=== PATIENT | male | born 1955 | race Caucasian/White ===

== ENCOUNTER 2022-05-05 06:28 | Day surgery (SDC) | payer MEDICARE, SELFPAY ==
--- NOTE | 2022-05-04 10:49 | HO.ANESPROP2 ---
Documented by User: Lucinda Hunt NP 05/04/22 10:55 HPI - Anesthesia Eval Consult details Narrative: 66yo M for Colonoscopy Xarelto for afib - OK to hold per PCP [facility] Past Medical History Medical History Afib Diabetes HLD (hyperlipidemia) Surgical History Surgical History H/O cataract extraction Social History Social History Patient Tobacco Use Status: Never used Tobacco Use of substances other than those prescribed or required for medical reasons: No Are you DNR?: No Advance Directives: No Advance Directives Information Provided: Yes Meds Allergies Allergy/AdvReac Type Severity Reaction Status Date / Time No Known Allergies Allergy Unverified 03/11/20 16:50 [No Known Allergies*] Home Medications Medication Instructions Recorded Confirmed Last Taken Type coenzyme Q10 30 mg capsule (CoQ-10) 30 mg PO 05/04/22 Unknown History flaxseed oil 1,000 mg PO DAILY 05/04/22 05/04/22 Unknown History lisinopril 20 mg tablet 1 tab PO DAILY 05/04/22 05/04/22 05/05/22 History metformin 500 mg tablet mg PO 05/04/22 05/04/22 Unknown History metoprolol succinate 100 mg 1 tab PO DAILY 05/04/22 05/04/22 05/05/22 History tablet,extended release 24 hr rivaroxaban 20 mg tablet (Xarelto) 1 tab PO DAILY 05/04/22 05/04/22 Unknown History simvastatin 20 mg tablet 1 tab PO QPM 05/04/22 05/04/22 Unknown History Exam Exam Date and Time: May 04, 2022 1049 Assessment and Plan Assessment Anesthesia Assessment: Chart Reviewed Documented by User: Lex Brooks MD 05/05/22 07:49 [facility] Past Medical History Medical History Afib Diabetes HLD (hyperlipidemia) Family History Family history of problems with anesthesia: No Surgical History Surgical History H/O cataract extraction History of Problems with Anesthesia: No Social History Social History Patient Tobacco Use Status: Never used Tobacco Use of substances other than those prescribed or required for medical reasons: No Are you DNR?: No Advance Directives: No Advance Directives Information Provided: Yes Meds Allergies Allergy/AdvReac Type Severity Reaction Status Date / Time No Known Allergies Allergy Unverified 03/11/20 16:50 [No Known Allergies*] Home Medications Medication Instructions Recorded Confirmed Last Taken Type coenzyme Q10 30 mg capsule (CoQ-10) 30 mg PO 05/04/22 Unknown History flaxseed oil 1,000 mg PO DAILY 05/04/22 05/04/22 Unknown History lisinopril 20 mg tablet 1 tab PO DAILY 05/04/22 05/04/22 05/05/22 History metformin 500 mg tablet mg PO 05/04/22 05/04/22 Unknown History metoprolol succinate 100 mg 1 tab PO DAILY 05/04/22 05/04/22 05/05/22 History tablet,extended release 24 hr rivaroxaban 20 mg tablet (Xarelto) 1 tab PO DAILY 05/04/22 05/04/22 Unknown History simvastatin 20 mg tablet 1 tab PO QPM 05/04/22 05/04/22 Unknown History Exam Airway Mallampati Class: II TM Dist: >3cm Neck ROM: Full Loose/Missing/Broken Teeth: No Heart: rrr+[id number] in sinus right now Lungs: cta b/l Assessment and Plan Assessment Anesthesia Assessment: Anesthesia Plan Discussed Final Anesthetic Review Family History of Problems with Anesthesia: No History of Problems with Anesthesia: No NPO: Yes ASA Class: III Final Preanesthetic Review: No Changes in Pt Med Stat, Meds/Allgs Chart Reviewed, Consent Obtained/Reviewed and Anes Risks/Benef Reviewed Patient Risk: Intermediate Procedure Risk: Intermediate Assessment/Block/Sedation in SS: Assess/Block/Sedation-SS Anesthetic Plan Anesthetic Plan: MAC: and Agree w/ Assess. and Plan Disposition: Standard PACU
[2022-05-05 06:43] VITALS: BP 139/84; PULSE 78; RESP 18; TEMP 36.5; O2SAT 99; BMI 33.1
[2022-05-05 06:51] LABS: Glucose, Whole Blood 159 mg/dL (60-115)
[2022-05-05] MEDS: Lactated Ringers 1,000 ML 100 ML IVCONT (07:02)
[2022-05-05 08:25] VITALS: BP 111/54; PULSE 75; RESP 16; TEMP 37.1; O2SAT 98
--- NOTE | 2022-05-05 08:28 | PM.OP ---
Brief Operative Note Date of Service: 05/05/22 Pre-op diagnosis: Screening Post-op diagnosis: other (Diverticulosis) Procedure: Colonoscopy to the cecum and TI Surgeon: Arnel Cruz Anesthesia: MAC Was an Building [employer] used for this Procedure?: No Estimated blood loss (mL): 0 Pathology: none sent Condition: stable Disposition: PACU
[2022-05-05 08:40] VITALS: BP 97/53; PULSE 68; RESP 16; TEMP 37; O2SAT 97
[2022-05-05 08:55] VITALS: BP 107/57; PULSE 68; RESP 16; TEMP 36.9; O2SAT 97
--- NOTE | 2022-05-05 09:08 | OP_ITS ---
SURGEON: Arnel Cruz MD INDICATIONS: The patient presents for evaluation of colorectal cancer screening, personal history of tubular adenoma of the colon, and family history of colon cancer. Full consent has been obtained from him for this, including risks of bleeding and perforation. PREOPERATIVE DIAGNOSIS: POSTOPERATIVE DIAGNOSIS: PROCEDURE PERFORMED: Colonoscopy to cecum and terminal ileum. ESTIMATED BLOOD LOSS: COMPLICATIONS: ANESTHESIA: Monitored anesthesia care. ASSISTANTS: SPECIMENS: PREOPERATIVE DIAGNOSES: Colorectal cancer screening, family history of colon cancer, personal history of tubular adenoma of the colon. POSTOPERATIVE DIAGNOSES: Colorectal cancer screening, family history of colon cancer, personal history of tubular adenoma of the colon, diverticulosis, internal hemorrhoids. DESCRIPTION OF PROCEDURE: The patient was placed in the left lateral decubitus position. The digital rectal exam revealed no abnormalities. The Olympus video pediatric colonoscope was entered into the rectum and advanced easily to the cecum. Once in the cecum, I did identify a normal-appearing cecal pouch with appendiceal orifice and a normal-appearing ileocecal valve. The terminal ileum was cannulated and appeared normal. The scope was withdrawn back in the colon. The entire cecum and ileocecal valve appeared normal. The scope was slowly withdrawn assessing all mucosal surfaces carefully. Preparation was excellent. I did not visualize any sign of polyps, colitis, nor angiodysplasia. There was a mild amount of sigmoid diverticulosis. In the rectum, scope was retroflexed visualizing internal hemorrhoids, but no other pathology. The rectal mucosa appeared normal. The scope was straightened and withdrawn from the patient. He tolerated the procedure well and was returned to the recovery area in stable condition. IMPRESSION: 1. Diverticulosis. 2. Internal hemorrhoids. PLAN: I would recommend a repeat colonoscopy in 5 years for further screening and surveillance. He was advised to resume his Xarelto today. He will otherwise see me on a p.r.n. basis. MD ANUM Cevallos/MECHE / [id number]
== END 2022-05-05 09:21 | disposition home or self-care (01) ==
PROVIDERS: PCP Family Medicine; Visit Provider Internal Medicine
PROC: 0DJD8ZZ Inspection of Lower Intestinal Tract, Via Natural or Artificial Opening Endoscopic (ICD-10-PCS; CPT 45378; principal; 2022-05-05 07:30)
DX: Z12.11 Encounter for screening for malignant neoplasm of colon (principal); Z86.010 Personal history of colon polyps; K57.30 Diverticulosis of large intestine without perforation or abscess without bleeding; K64.8 Other hemorrhoids; I48.91 Unspecified atrial fibrillation; E78.5 Hyperlipidemia, unspecified; E11.9 Type 2 diabetes mellitus without complications; Z79.84 Long term (current) use of oral hypoglycemic drugs; Z79.899 Other long term (current) drug therapy; Z80.0 Family history of malignant neoplasm of digestive organs; Z79.01 Long term (current) use of anticoagulants
CPT/HCPCS: G0105; 82947